=== PATIENT | female | born 1980 | race Caucasian/White ===

== ENCOUNTER 2016-11-16 18:54 | Emergency (ER) | payer OTHER ==
[2016-11-16 19:00] VITALS: BP 165/107
[2016-11-16] MEDS ORDERED: DIAZEPAM 5 MG TABLET PO ONE (19:04)
--- NOTE | 2016-11-16 19:04 | ER Document Report ---
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 pt ntoes this happens intermittently, noted that it happens now because her child is the same age as the flashbacks she has had i n the past. TRAVEL OUTSIDE OF THE [place] IN LAST 30 DAYS: No - Related Data Allergies/Adverse Reactions: No Known Allergies Allergy (Verified 11/16/16 18:59) Past Medical History - Social History Smoking Status: Never Smoker Cigarette use (# per day): No Chew tobacco use (# tins/day): No Smoking Education Provided: No Family History: Reviewed & Not Pertinent, Other - Hemophilia - Past Medical History Cardiac Medical History: Reports: Hx Hypertension - history of preecamplsia Endocrine Medical History: Reports: Hx Diabetes Mellitus Type 2, Hx Hypothyroidism Renal/ Medical History: Denies: Hx Peritoneal Dialysis Infectious Medical History: Reports: Hx MRSA - scalp Past Surgical History: Reports: Hx Cholecystectomy, Hx Thyroid Surgery - Thyroidectomy - Immunizations Immunizations up to date: Yes Hx Diphtheria, Pertussis, Tetanus Vaccination: Yes Physical Exam - Vital signs Vitals: Temp Pulse Resp BP Pulse Ox 98.5 F 101 H 18 165/107 H 97 11/16/16 18:59 11/16/16 18:59 11/16/16 18:59 11/16/16 18:59 11/16/16 18:59 Course - Re-evaluation Re-evalutation: 11/16/16 20:33 Valium did not improve patient's symptoms, Haldol resolve them. I will discharge the patient to follow-up with her own primary care physician After performing a Medical Screening Examination, I estimate there is LOW risk for INTRACRANIAL HEMORRHAGE, ISCHEMIC CVA, MALIGNANT DYSRHYTHMIA, ACUTE CORONARY SYNDROME, MENINGITIS, PULMONARY EMBOLISM, or SEPSIS thus I consider the discharge disposition reasonable. I have reevaluated this patient multiple times and no significant life threatening changes are noted. The patient and I have discussed the diagnosis and risks, and we agree with discharging home with close follow-up with the understanding that symptoms and presentations can change. We also discussed returning to the Emergency Department immediately if new or worsening symptoms occur. We have discussed the symptoms which are most concerning (e.g., changing or worsening pain, weakness, vomiting, fever) that necessitate immediate return. - Vital Signs Vital signs: Temp Pulse Resp BP Pulse Ox 98.5 F 101 H 18 165/107 H 97 11/16/16 18:59 11/16/16 18:59 11/16/16 18:59 11/16/16 18:59 11/16/16 18:59 Discharge - Discharge Clinical Impression: Panic attack as reaction to stress Condition: Stable Disposition: HOME, SELF-CARE Instructions: Anxiety ([facility]) Additional Instructions: Follow up with your physician tomorrow for further care or return to the ED IMMEDIATELY if symptoms worsen or new concerns occur. If you cannot afford to follow up with your primary care physician a list of low cost clinics have been provided at the end of your discharge papers as well.
[2016-11-16] MEDS ORDERED: HALOPERIDOL LACTATE INJ 5 MG/1 ML VIAL IM ONE (19:54)
== END 2016-11-16 20:37 | disposition home or self-care (01) ==
LOC: ER 18:54
DX: F43.0 Acute stress reaction (principal); I10 Essential (primary) hypertension; Z86.14 Personal history of Methicillin resistant Staphylococcus aureus infection; Z90.49 Acquired absence of other specified parts of digestive tract
CPT/HCPCS: 99282; 96372; J1630

== ENCOUNTER 2017-02-25 16:54 | Emergency (ER) | payer SELFPAY ==
[2017-02-25] MEDS ORDERED: DEXAMETHASONE SOD PHOS INJ 10 MG/1 ML VIAL IM ONE (19:32)
--- NOTE | 2017-02-25 19:39 | ER Document Report ---
ED General - General Chief Complaint: Rash Stated Complaint: RASH Time Seen by Provider: 02/25/17 19:19 Mode of Arrival: Ambulatory Information source: Patient TRAVEL OUTSIDE OF THE [place] IN LAST 30 DAYS: No - HPI Notes: 36-year-old female presents today with a rash to her right lower extremity that started approximately 2 weeks ago, states has been incredibly itchy and has been itching, which now has spread to her left lower extremity. Denies any fevers or chills. Patient has a history of histamine responses to any well- liked plant substances. Has tried [id number] Benadryl with some relief. Denies any open wounds or drainage. Denies any chest pain, shortness of breath , nausea, vomiting, blurred vision, double vision, loss of vision, abdominal pain, lightheadedness or dizziness. Denies any pain. Itching is 8 out of 10, constant. Has been outside near agitation. - Related Data Allergies/Adverse Reactions: No Known Allergies Allergy (Verified 02/25/17 16:55) Past Medical History - General Information source: Patient - Social History Smoking Status: Never Smoker Chew tobacco use (# tins/day): No Frequency of alcohol use: None Drug Abuse: None Family History: Reviewed & Not Pertinent, Other - Hemophilia Patient has suicidal ideation: No Patient has homicidal ideation: No - Past Medical History Cardiac Medical History: Reports: Hx Hypertension - history of preecamplsia Endocrine Medical History: Reports: Hx Diabetes Mellitus Type 2, Hx Hypothyroidism Renal/ Medical History: Denies: Hx Peritoneal Dialysis Psychiatric Medical History: Reports: Hx Depression Infectious Medical History: Reports: Hx MRSA - scalp Past Surgical History: Reports: Hx Cholecystectomy, Hx Thyroid Surgery - Thyroidectomy - Immunizations Immunizations up to date: Yes Hx Diphtheria, Pertussis, Tetanus Vaccination: Yes Review of Systems - Review of Systems Constitutional: No symptoms reported EENT: No symptoms reported Cardiovascular: No symptoms reported Respiratory: No symptoms reported Gastrointestinal: No symptoms reported Musculoskeletal: No symptoms reported Skin: See HPI Hematologic/Lymphatic: No symptoms reported Neurological/Psychological: No symptoms reported -: Yes All other systems reviewed and negative Physical Exam - Vital signs Vitals: Temp Pulse Resp BP Pulse Ox 98.7 F 100 18 133/86 H 98 02/25/17 17:06 02/25/17 17:06 02/25/17 17:06 02/25/17 17:06 02/25/17 17:06 Interpretation: Tachycardic - Notes Notes: PHYSICAL EXAMINATION: GENERAL: Well-appearing, well-nourished and in no acute distress. HEAD: Atraumatic, normocephalic. EYES: Pupils equal round and reactive to light, extraocular movements intact, conjunctiva are normal. ENT: Nares patent, oropharynx clear without exudates. Moist mucous membranes. NECK: Normal range of motion, supple without lymphadenopathy LUNGS: Breath sounds clear to auscultation bilaterally and equal. No wheezes rales or rhonchi. HEART: Regular rate and rhythm without murmurs ABDOMEN: Soft, nontender, nondistended abdomen. No guarding, no rebound. No masses appreciated. Female : deferred Musculoskeletal: Normal range of motion, no pitting or edema. No cyanosis. NEUROLOGICAL: Cranial nerves grossly intact. Normal speech, normal gait. Normal sensory, motor exams PSYCH: Normal mood, normal affect. SKIN: Warm, Dry, normal turgor, no rashes or lesions noted. Right lower extremity lateral aspect approximately 10 cm x 2 cm and left lower extremity on lateral aspects with papular macular rash, slight erythema. no induration, swelling, satellite lesions or burrowing on trunk. no weeping ot drainage. no central clearing on rash . No blisters noted, no vesicles noted. Course - Re-evaluation Re-evalutation: 02/25/17 19:43 Rechecked the patient who is resting comfortably. On re-exam, patient is symptomatically improved. Discussed the results of the the diagnosis at great length. Discussed the need to return to the ER for any new or worsening sx. Patient understands to take the Rx as directed. All questions answered. Patient comfortable with the decision to go home. - Vital Signs Vital signs: Temp Pulse Resp BP Pulse Ox 98.7 F 100 18 133/86 H 98 02/25/17 17:06 02/25/17 17:06 02/25/17 17:06 02/25/17 17:06 02/25/17 17:06 Discharge - Discharge Clinical Impression: Contact dermatitis Qualifiers: Contact dermatitis type: allergic Contact dermatitis trigger: other trigger Qualified Code(s): L23.89 - Allergic contact dermatitis due to other agents; L23.8 - Allergic contact dermatitis due to other agents Condition: Good Disposition: HOME, SELF-CARE Instructions: Contact Dermatitis ([facility]) Additional Instructions: Take oral prednisone as directed. Apply steroid ointment to affected area twice a day. Take [id number]-lophylw antihistamine such as Claritin. Monitor area. Avoid itching. Wash clothing, bed sheets, clean under her nails and clip nails. advised to return to the ER if any signs or symptoms became worse. Take [id number]-[id number] Motrin and Tylenol as needed for any fevers or pain. Follow up with primary care within 1-2 days. All questions and concerns answered by this provider.
[2017-02-25 20:05] VITALS: BP 140/95
== END 2017-02-25 20:05 | disposition home or self-care (01) ==
LOC: ER 16:54
DX: R21 Rash and other nonspecific skin eruption (principal); L23.89 Allergic contact dermatitis due to other agents
CPT/HCPCS: 99282; 96372; J1100

== ENCOUNTER 2017-07-18 22:06 | Emergency (ER) | payer OTHER ==
[2017-07-18] MEDS ORDERED: NIFEDIPINE 10 MG CAPSULE PO ONE (23:05)
[2017-07-18] MEDS ORDERED: LABETALOL HCL 200 MG TABLET PO ONE (23:05)
[2017-07-18] MEDS ORDERED: KETOROLAC TROMETHAMINE 60 MG/2 ML SDV IM ONE (23:05)
[2017-07-18] MEDS ORDERED: ONDANSETRON 4 MG TAB.RAPDIS PO ONE (23:07)
--- NOTE | 2017-07-18 23:07 | ER Document Report ---
ED General - General Chief Complaint: Headache Stated Complaint: HEAD ACHE Time Seen by Provider: 07/18/17 22:52 Mode of Arrival: Ambulatory Information source: Patient Notes: 36-year-old female patient presents with complaint of elevated blood pressure and headache. Patient reports that she typically takes labetalol 200 mg twice daily as well as nifedipine 90 mg daily. Patient reports that she has been only taking her medications every other day and she has not been able to afford a refill. Patient reports that over the last few weeks she has been having headaches similar to this when her blood pressure is elevated. Patient reports that this headache started earlier today and has progressively gotten worse and has associated nausea. Patient denies any fever. TRAVEL OUTSIDE OF THE [place] IN LAST 30 DAYS: No - Related Data Allergies/Adverse Reactions: No Known Allergies Allergy (Verified 07/18/17 23:13) Past Medical History - General Information source: Patient - Social History Smoking Status: Never Smoker Cigarette use (# per day): No Chew tobacco use (# tins/day): No Smoking Education Provided: No Frequency of alcohol use: None Drug Abuse: None Lives with: Family Family History: Reviewed & Not Pertinent, Other - Hemophilia - Past Medical History Cardiac Medical History: Reports: Hx Hypertension - history of preecamplsia Endocrine Medical History: Reports: Hx Diabetes Mellitus Type 2, Hx Hypothyroidism Renal/ Medical History: Denies: Hx Peritoneal Dialysis Psychiatric Medical History: Reports: Hx Depression Infectious Medical History: Reports: Hx MRSA - scalp Past Surgical History: Reports: Hx Cholecystectomy, Hx Thyroid Surgery - Thyroidectomy - Immunizations Immunizations up to date: Yes Hx Diphtheria, Pertussis, Tetanus Vaccination: Yes Review of Systems - Review of Systems Constitutional: No symptoms reported EENT: No symptoms reported Cardiovascular: No symptoms reported Respiratory: No symptoms reported Gastrointestinal: No symptoms reported Genitourinary: No symptoms reported Female Genitourinary: No symptoms reported Musculoskeletal: No symptoms reported Skin: No symptoms reported Hematologic/Lymphatic: No symptoms reported Neurological/Psychological: See HPI Physical Exam - Vital signs Vitals: Temp Pulse Resp BP Pulse Ox 98.5 F 98 16 145/100 H 96 07/18/17 22:19 07/18/17 22:19 07/18/17 22:19 07/18/17 22:19 07/18/17 22:19 - Notes Notes: PHYSICAL EXAMINATION: GENERAL: Well-appearing, well-nourished and in no acute distress. HEAD: Atraumatic, normocephalic. EYES: Pupils equal round and reactive to light, extraocular movements intact, conjunctiva are normal. ENT: Nares patent, oropharynx clear without exudates. Moist mucous membranes. NECK: Normal range of motion, supple without lymphadenopathy LUNGS: Breath sounds clear to auscultation bilaterally and equal. No wheezes rales or rhonchi. HEART: Regular rate and rhythm without murmurs ABDOMEN: Soft, nontender, nondistended abdomen. No guarding, no rebound. No masses appreciated. Female : deferred Musculoskeletal: Normal range of motion, no pitting or edema. No cyanosis. NEUROLOGICAL: Cranial nerves grossly intact. Normal speech, normal gait. Normal sensory, motor exams PSYCH: Normal mood, normal affect. SKIN: Warm, Dry, normal turgor, no rashes or lesions noted. Course - Re-evaluation Re-evalutation: 36-year-old female presenting with elevated blood pressure and headache. Patient's has had similar headaches over the last 2 weeks as she has been skipping blood pressure medicines to make them last longer due to finances Patient reports that today's headache was gradual in onset and has associated nausea. Low suspicion of SAH due to gradual onset and history of similar headaches. Will give patient dose of her normal home medications and Toradol/Zofran for her headache and nausea. Patient's blood pressure has normalized after administration of her home medications. Patient reports complete resolution of her fever after IM Toradol. Patient will be discharged home. - Vital Signs Vital signs: Temp Pulse Resp BP Pulse Ox 98.8 F 100 20 131/82 H 98 07/19/17 00:54 07/19/17 00:54 07/19/17 00:54 07/19/17 00:54 07/19/17 00:54 Discharge - Discharge Clinical Impression: Headache Qualifiers: Headache type: unspecified Headache chronicity pattern: unspecified pattern Intractability: not intractable Qualified Code(s): R51 - Headache Hypertension Qualifiers: Hypertension type: unspecified Qualified Code(s): I10 - Essential (primary) hypertension Condition: Stable Disposition: HOME, SELF-CARE Additional Instructions: High Blood Pressure When your blood pressure was taken today it was elevated. Pre-hypertension/Hypertension: The patient has been informed that they may have pre-hypertension or Hypertension based on a blood pressure reading in the emergency department. I recommend that the patient call the primary care provider listed on their discharge instructions or a physician of their choice this wee to arrange follow up for further evaluation of possible pre- hypertension or Hypertension. Sometimes, stress or illness causes a temporary elevation of your blood pressure. We suggest that you get your blood pressure measured three more times during the next few days to see if this is more than a temporary abnormality. If your blood pressure is greater than 150/90 on each occasion, you must have treatment. Some simple things you can do to help are: If you have blood pressure medicine but aren't using it regularly, start taking it again. Get some aerobic exercise for at least 20 minutes on a daily basis. (See your doctor before beginning a new exercise program.) Eat a low-fat diet. Lose excess weight. Avoid salty foods and avoid adding salt to any of the foods you eat. Avoid diet pills, decongestants, "energizing" herbs, and other medicines that elevate blood pressure. If left untreated, hypertension greatly enhances your risk for developing heart disease and strokes. Please don't ignore this problem. Please take your blood pressure medications as prescribed. Please return to the emergency department if you develop any further symptoms that are concerning to you such as sudden onset headache. Referrals: ANGUS TILLEY MD [Primary Care Provider] - Follow up as needed
[2017-07-19 01:01] VITALS: BP 131/82
== END 2017-07-19 01:10 | disposition home or self-care (01) ==
LOC: ER 22:06
DX: I10 Essential (primary) hypertension (principal); T46.1X6A Underdosing of calcium-channel blockers, initial encounter; T44.8X6A Underdosing of centrally-acting and adrenergic-neuron-blocking agents, initial encounter; Z91.120 Patient's intentional underdosing of medication regimen due to financial hardship; Z91.14 Patient's other noncompliance with medication regimen; R51 Headache; R11.0 Nausea; E11.9 Type 2 diabetes mellitus without complications
CPT/HCPCS: 99284; 96372; J1885; S0119; J3490

== ENCOUNTER 2017-07-30 10:28 | Emergency (ER) | payer OTHER ==
[2017-07-30] MEDS ORDERED: KETOROLAC TROMETHAMINE INJ/PF 30 MG/1 ML SDV IV ONE ×2 (10:48→13:52)
[2017-07-30] MEDS ORDERED: NORMAL SALINE 1000 ML 1,000 ML IV ONE (10:48)
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
[2017-07-30 11:22] LABS: ABSOLUTE BASOPHILS # (AUTO) 0.1 10^3/uL (0.0-0.2); ABSOLUTE LYMPHOCYTES (AUTO) 1.3 10^3/uL (0.5-4.7); ABSOLUTE MONOCYTES (AUTO) 0.6 10^3/uL (0.1-1.4); ABSOLUTE NEUT (AUTO) 14.7 10^3/uL (1.7-8.2); BASOPHILS % (AUTO) 0.5 % (0-2); EOSINOPHILS % (AUTO) 0.1 % (0-6); HEMATOCRIT 38.6 % (36.0-47.0); HEMOGLOBIN 13.3 g/dL (12.0-15.5); LYMPHOCYTES % (AUTO) 7.7 % (13-45); MEAN CORPUSCULAR HEMOGLOBIN 30.4 pg (27.0-33.4); MEAN CORPUSCULAR HGB CONC 34.5 g/dL (32.0-36.0); MEAN CORPUSCULAR VOLUME 88 fl (80-97); MONOCYTES % (AUTO) 3.3 % (3-13); PLATELET COUNT 239 10^3/uL (150-450); RED BLOOD COUNT 4.37 10^6/uL (3.72-5.28); RED CELL DISTRIBUTION WIDTH 13.3 % (11.5-14.0); SEGMENTED NEUTROPHILS % (AUTO) 88.4 % (42-78); TOTAL CELLS COUNTED % (AUTO) 100 %; WHITE BLOOD COUNT 16.7 10^3/uL (4.0-10.5)
[2017-07-30 11:27] LABS: APPEARANCE,URINE CLOUDY; BILIRUBIN,URINE NEGATIVE (NEGATIVE); COLOR,URINE YELLOW; GLUCOSE, URINE NEGATIVE (NEGATIVE); KETONES,URINE NEGATIVE (NEGATIVE); LEUKOCYTE ESTERASE,URINE LARGE (NEGATIVE); NITRITE,URINE NEGATIVE (NEGATIVE); PROTEIN,URINE 30 mg/dL (NEGATIVE); URINE SPECIFIC GRAVITY 1.017; UROBILINOGEN,URINE NEGATIVE mg/dL (<2.0)
[2017-07-30 11:39] LABS: ALANINE AMINOTRANSFERASE 20 U/L (9-52); ALBUMIN 4.5 g/dL (3.5-5.0); ALKALINE PHOSPHATASE 64 U/L (38-126); ANION GAP 15 (5-19); ASPARTATE AMINO TRANSFERASE 17 U/L (14-36); BILIRUBIN,DIRECT 0.3 mg/dL (0.0-0.4); BILIRUBIN,TOTAL 1.1 mg/dL (0.2-1.3); BLOOD UREA NITROGEN 12 mg/dL (7-20); CALCIUM 9.3 mg/dL (8.4-10.2); CARBON DIOXIDE 22 mmol/L (22-30); CHLORIDE 104 mmol/L (98-107); GLUCOSE 121 mg/dL (75-110); LIPASE 28.6 U/L (23-300); POTASSIUM 4.4 mmol/L (3.6-5.0); SODIUM 140.8 mmol/L (137-145); TOTAL PROTEIN 7.8 g/dL (6.3-8.2)
[2017-07-30] MEDS ORDERED: CEFTRIAXONE 1 GM/D5W RTU 1 GM/50 ML RTUPB IV ONE (13:46)
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
[2017-07-30] MEDS ORDERED: MORPHINE SULFATE 10 MG/ML INJ IV ONE (13:52)
--- NOTE | 2017-07-30 14:52 | RADIOLOGY REPORT (SQ) ---
EXAM DESCRIPTION: CT ABD/PELVIS WITH IV ONLY COMPLETED DATE/TIME: 07/30/2017 2:41 pm REASON FOR STUDY: pain COMPARISON: None. TECHNIQUE: CT scan of the abdomen and pelvis performed using helical scanning technique with dynamic intravenous contrast injection. No oral contrast. Images reviewed with lung, soft tissue, and bone windows. Reconstructed coronal and sagittal MPR images reviewed. Delayed images for evaluation of the urinary system also acquired. All images stored on PACS. All CT scanners at this facility use dose modulation, iterative reconstruction, and/or weight based d osing when appropriate to reduce radiation dose to as low as reasonably achievable (ALARA). [facility]: Dose Right [facility]: CareDose [facility]: Dose Right [facility]: Teradose 4D [facility]: [employer] CONTRAST TYPE AND DOSE: contrast/concentration: Isovue 370.00 mg/ml; Total Contrast Delivered: 100.0 ml; Total Saline Delivered: 72.0 ml RENAL FUNCTION: BUN 12 creatinine 0.75. RADIATION DOSE: CT Rad equipment meets quality standard of care and radiation dose reduction techniq ues were employed. CTDIvol: 20.1 - 21.1 mGy. DLP: 2190 mGy-cm.. LIMITATIONS: None. FINDINGS: LOWER CHEST: No significant findings. No nodules or infiltrates. LIVER: Normal size. No masses. No dilated ducts. SPLEEN: Normal size. No focal lesions. PANCREAS: No masses. No significant calcifications. No adjacent inflammation or peripancreatic fluid collections. Pancreatic duct not dilated. GALLBLADDER: Surgically absent. ADRENAL GLANDS: No significant masses or asymmetry. RIGHT KIDNEY AND URETER: No solid masses. No significant calcifications. No hydronephrosis or hyd roureter. LEFT KIDNEY AND URETER: No solid masses. No significant calcifications. No hydronephrosis or hydr oureter. AORTA AND VESSELS: No aneurysm. No dissection. Renal arteries, SMA, celiac without stenosis. RETROPERITONEUM: No retroperitoneal adenopathy, hemorrhage or masses. BOWEL AND PERITONEAL CAVITY: No masses or inflammatory changes. No free fluid or peritoneal masses. APPENDIX: Normal. PELVIS: IUD in the uterus. No mass. No free fluid. Normal bladder. ABDOMINAL WALL: No masses. No hernias. BONES: No significant or acute findings. OTHER: No other significant finding. IMPRESSION: NO SIGNIFICANT OR ACUTE FINDING IN THE ABDOMEN OR PELVIS ON CT SCAN WITH IV CONTRAST. TECHNICAL DOCUMENTATION: JOB ID: [id number] Quality ID # [id number]: Final reports with documentation of one or more dose reduction techniques (e.g., Au tomated exposure control, adjustment of the mA and/or kV according to patient size, use of iterative reconstruction technique) 2010 [employer]- All Rights Reserved Reading location - IP/workstation name: [email or web address]
[2017-07-30 17:36] VITALS: BP 110/64
[2017-07-30 19:02] LABS: CHLAM PCR NOT DETECTED (NOT DETECT); GON PCR DETECTED (NOT DETECT)
== END 2017-07-30 17:36 | disposition home or self-care (01) ==
LOC: ER 10:28
DX: N39.0 Urinary tract infection, site not specified (principal); R10.13 Epigastric pain; R50.9 Fever, unspecified; E11.9 Type 2 diabetes mellitus without complications; R11.0 Nausea; Z90.49 Acquired absence of other specified parts of digestive tract
CPT/HCPCS: 96376; 99284; 96361; 96375; 96365; 36415; 87040; 83690; 84703; 85025; 80053; 81001; 87491; 87591; 74177; J1885; J2270; J7030; J0696

== ENCOUNTER 2018-03-15 14:32 | Emergency (ER) | payer OTHER ==
[2018-03-15 14:52] VITALS: BP 162/109
[2018-03-15] MEDS ORDERED: DIPHENHYDRAMINE HCL 50 MG/ML VIAL IM ONE (16:28)
[2018-03-15] MEDS ORDERED: HALOPERIDOL LACTATE INJ 5 MG/1 ML VIAL IM ONE (16:28)
--- NOTE | 2018-03-15 16:30 | ER Document Report ---
ED Medical Screen (RME) - General Chief Complaint: Psych Problem Stated Complaint: PSYCH EVAL Time Seen by Provider: 03/15/18 16:21 Primary Care Provider: ANGUS TILLEY MD [Primary Care Provider] - Follow up as needed Mode of Arrival: Ambulatory Information source: Patient Notes: This is a 37-year-old female with a history of hypertension, PTSD, panic attacks who presents to the emergency room with anxiety and recurrent flashbacks (which is what she experiences when she gets panic attacks. She did try and follow-up with her therapist (Dr. Rahman) but the office was called yesterday. She states that she will be able to get in tomorrow. She states she has had shots in the past that have helped her when she gets these recurrent flashbacks. Review of the chart shows in October 2016, she was evaluated for an anxiety episode similar to day and was treated. The note from the MD at that time notes that Haldol helped the patient. I discussed it with the patient will going to try that medicine today. TRAVEL OUTSIDE OF THE [place] IN LAST 30 DAYS: No - HPI Onset: Last week Onset/Duration: Gradual Quality of pain: No pain Severity: None Pain Level: Denies Associated Symptoms: denies: Chest pain, Chills, Shortness of breath Exacerbated by: Denies Relieved by: Denies Similar symptoms previously: Yes Recently seen / treated by doctor: Yes - Related Data Smoking: Non-smoker Frequency of alcohol use: None Drug Abuse: None Allergies/Adverse Reactions: No Known Allergies Allergy (Verified 03/15/18 14:33) Past Medical History - General Information source: Patient - Social History Cigarette use (# per day): No Chew tobacco use (# tins/day): No Frequency of alcohol use: None Drug Abuse: None Lives with: Family Family history: None - Past Medical History Cardiac Medical History: Reports: Hx Hypertension - history of preecamplsia Endocrine Medical History: Reports: Hx Diabetes Mellitus Type 2, Hx Hypothyroidism Renal/ Medical History: Denies: Hx Peritoneal Dialysis Psychiatric Medical History: Reports: Hx Depression Infectious Medical History: Reports: Hx MRSA - scalp Past Surgical History: Reports: Hx Cholecystectomy, Hx Thyroid Surgery - T hyroidectomy - Immunizations Immunizations up to date: Yes Hx Diphtheria, Pertussis, Tetanus Vaccination: Yes Review of Systems - Review of Systems Constitutional: denies: Chills, Fever EENT: No symptoms reported Cardiovascular: No symptoms reported Respiratory: No symptoms reported Gastrointestinal: No symptoms reported Genitourinary: No symptoms reported Female Genitourinary: No symptoms reported Musculoskeletal: No symptoms reported Skin: No symptoms reported Hematologic/Lymphatic: No symptoms reported Neurological/Psychological: Anxiety, Other - Flashbacks Physical Exam - Vital signs Vitals: Temp Pulse Resp BP Pulse Ox 98.5 F 90 14 162/109 H 99 03/15/18 14:51 03/15/18 14:51 03/15/18 14:51 03/15/18 14:51 03/15/18 14:51 Notes: Physical exam: GENERAL: She is alert and oriented x3, no acute distress however she does appear anxious HEAD: Atraumatic, normocephalic. EYES: Pupils equal round and reactive to light, extraocular movements intact, sclera anicteric, conjunctiva are normal. ENT: TMs normal, nares patent, oropharynx clear without exudates. Moist mucous membranes. NECK: Normal range of motion, supple without obvious mass or JVD. LUNGS: Breath sounds clear to auscultation bilaterally and equal. No wheezes rales or rhonchi. HEART: Regular rate and rhythm without murmurs, rubs or gallops. ABDOMEN: Soft, normoactive bowel sounds. No tenderness to palpation. No guarding, no rebound. No masses appreciated. EXTREMITIES: Normal range of motion, no pitting or edema. No clubbing or cyanosis. NEUROLOGICAL: Cranial nerves II through XII grossly intact. Normal speech, moving all extremities. PSYCH: Patient is anxious, ports having recurrent flashbacks, denies any suicidal homicidal. She denies any hallucinations. SKIN: Warm, Dry, normal turgor, no rashes or lesions noted. Course - Re-evaluation Re-evalutation: 03/15/18 19:36 Patient left prior to discharge instructions - Vital Signs Vital signs: Temp Pulse Resp BP Pulse Ox 98.5 F 90 14 162/109 H 99 03/15/18 14:51 03/15/18 14:51 03/15/18 14:51 03/15/18 14:51 03/15/18 14:51 Doctor's Discharge - Discharge Clinical Impression: Anxiety Condition: Stable Disposition: HOME, SELF-CARE Additional Instructions: I want you to continue your current medicines, follow-up with your counselor tomorrow as planned. Return to the emergency room for any thoughts of wanting to hurt yourself or others. Referrals: ANGUS TILLEY MD [Primary Care Provider] - Follow up as needed
== END 2018-03-15 17:44 | disposition home or self-care (01) ==
LOC: ER 14:32
DX: F41.9 Anxiety disorder, unspecified (principal); F43.10 Post-traumatic stress disorder, unspecified; I10 Essential (primary) hypertension; Z86.14 Personal history of Methicillin resistant Staphylococcus aureus infection; Z90.49 Acquired absence of other specified parts of digestive tract
CPT/HCPCS: 99283; 96372; J1200; J1630

== ENCOUNTER → 2018-07-29 | Outpatient (CLI) | payer OTHER ==
--- NOTE | 2018-07-29 11:17 | RADIOLOGY REPORT (SQ) ---
EXAM DESCRIPTION: HIP RIGHT AP/LATERAL COMPLETED DATE/TIME: 07/29/2018 10:28 am REASON FOR STUDY: PAIN IN RIGHT HIP M25.551 PAIN IN RIGHT HIP E89.0 POSTPROCEDURAL HYPOTHYROIDISM COMPARISON: None. NUMBER OF VIEWS: Two views. TECHNIQUE: AP pelvis and additional frog-leg view of the right hip. LIMITATIONS: None. FINDINGS: MINERALIZATION: Normal. RIGHT HIP: No fracture or dislocation. No worrisome bone lesions. LEFT HIP: No fracture or dislocation. No worrisome bone lesions. PUBIS AND ISCHIUM: No fracture. PELVIS: No fracture. SACRUM: No fracture or dislocation. No worrisome bone lesions. LOWER LUMBAR SPINE: No fracture or dislocation. No worrisome bone lesions. No significant disc disea se. SOFT TISSUES: No findings. OTHER: IUD in the pelvic region. No other significant finding. IMPRESSION: NEGATIVE STUDY OF THE RIGHT HIP. NO RADIOGRAPHIC EVIDENCE OF ACUTE INJURY. TECHNICAL DOCUMENTATION: JOB ID: [id number] [employer]- All Rights Reserved Reading location - IP/workstation name: [email or web address]
== END ==
LOC: OD 10:15
PROVIDERS: ATTEND Physician Assistant
DX: M25.551 Pain in right hip (principal); E89.0 Postprocedural hypothyroidism

== ENCOUNTER 2018-09-16 13:13 | Emergency (ER) | payer OTHER ==
--- NOTE | 2018-09-16 14:42 | ER Document Report ---
ED Medical Screen (RME) - General Chief Complaint: Blood Pressure Problem Stated Complaint: BLOOD PRESSURE ISSUES Time Seen by Provider: 09/16/18 14:10 Primary Care Provider: ANGELES WARREN PA-C [Primary Care Provider] - Follow up as needed Notes: Patient is a 38-year-old female presents to the emergency department for generalized dizziness and hypertension. Patient states she is been taking her blood pressure over the last couple days and noticed is been 176/115 multiple times. States she is a generalized headache and generalized dizziness which is why she presents to the emergency room. Patient states she did try to get into her primary care provider but has been unable. States she takes labetalol and nifedipine and has been on the same medications for the last 4 years. GENERAL: Alert, interacts well. No acute distress. LUNGS: Clear to auscultation bilaterally, no wheezes, rales, or rhonchi. No respiratory distress. NEUROLOGICAL: Alert and oriented x3. Normal speech. I have greeted and performed a rapid initial assessment of this patient. A comprehensive ED assessment and evaluation of the patient, analysis of test results and completion of the medical decision making process will be conducted by additional ED providers. I have specifically instructed the patient or family members with the patient to immediately return to any nursing staff should anything change in the patient's condition or with their chief complaint. This medical record was dictated with voice recognizing software. There may be grammatical, syntax errors that are unintended. TRAVEL OUTSIDE OF THE [place] IN LAST 30 DAYS: No - Related Data Allergies/Adverse Reactions: No Known Allergies Allergy (Verified 09/16/18 13:22) Past Medical History - Social History Chew tobacco use (# tins/day): No Frequency of alcohol use: None Drug Abuse: None Family history: None - Past Medical History Cardiac Medical History: Reports: Hx Hypertension Endocrine Medical History: Reports: Hx Diabetes Mellitus Type 2 - INDUCED, Hx Hypothyroidism Renal/ Medical History: Denies: Hx Peritoneal Dialysis Psychiatric Medical History: Reports: Hx Depression Infectious Medical History: Reports: Hx MRSA - scalp Past Surgical History: Reports: Hx Cholecystectomy, Hx Thyroid Surgery - Thyroidectomy - Immunizations Immunizations up to date: Yes Hx Diphtheria, Pertussis, Tetanus Vaccination: Yes Physical Exam - Vital signs Vitals: Temp Pulse Resp BP Pulse Ox 98.7 F 89 20 149/93 H 97 09/16/18 13:37 09/16/18 13:37 09/16/18 13:37 09/16/18 13:37 09/16/18 13:37 Course - Vital Signs Vital signs: Temp Pulse Resp BP Pulse Ox 98.7 F 89 20 149/93 H 97 09/16/18 13:37 09/16/18 13:37 09/16/18 13:37 09/16/18 13:37 09/16/18 13:37 Doctor's Discharge - Discharge Referrals: ANGELES WARREN PA-C [Primary Care Provider] - Follow up as needed
[2018-09-16 15:11] LABS: ABSOLUTE BASOPHILS # (AUTO) 0.1 10^3/uL (0.0-0.2); ABSOLUTE LYMPHOCYTES (AUTO) 2.5 10^3/uL (0.5-4.7); ABSOLUTE MONOCYTES (AUTO) 0.7 10^3/uL (0.1-1.4); ABSOLUTE NEUT (AUTO) 5.1 10^3/uL (1.7-8.2); APPEARANCE,URINE SLIGHTLY-CLOUDY; BASOPHILS % (AUTO) 0.6 % (0-2); BILIRUBIN,URINE NEGATIVE (NEGATIVE); COLOR,URINE YELLOW; EOSINOPHILS % (AUTO) 0.3 % (0-6); GLUCOSE, URINE NEGATIVE (NEGATIVE); HEMATOCRIT 43.7 % (36.0-47.0); HEMOGLOBIN 14.8 g/dL (12.0-15.5); KETONES,URINE NEGATIVE (NEGATIVE); LEUKOCYTE ESTERASE,URINE MODERATE (NEGATIVE); LYMPHOCYTES % (AUTO) 29.2 % (13-45); MEAN CORPUSCULAR HGB CONC 33.9 g/dL (32.0-36.0); MEAN CORPUSCULAR VOLUME 89 fl (80-97); MONOCYTES % (AUTO) 8.4 % (3-13); NITRITE,URINE NEGATIVE (NEGATIVE); PLATELET COUNT 232 10^3/uL (150-450); PROTEIN,URINE NEGATIVE (NEGATIVE); RED BLOOD COUNT 4.93 10^6/uL (3.72-5.28); RED CELL DISTRIBUTION WIDTH 13.1 % (11.5-14.0); SEGMENTED NEUTROPHILS % (AUTO) 61.5 % (42-78); TOTAL CELLS COUNTED % (AUTO) 100 %; URINE SPECIFIC GRAVITY 1.014; UROBILINOGEN,URINE NEGATIVE mg/dL (<2.0); WHITE BLOOD COUNT 8.4 10^3/uL (4.0-10.5)
[2018-09-16 15:24] LABS: ALANINE AMINOTRANSFERASE 18 U/L (9-52); ALBUMIN 4.9 g/dL (3.5-5.0); ALKALINE PHOSPHATASE 63 U/L (38-126); ANION GAP 11 (5-19); ASPARTATE AMINO TRANSFERASE 19 U/L (14-36); BILIRUBIN,DIRECT 0.3 mg/dL (0.0-0.4); BILIRUBIN,TOTAL 0.7 mg/dL (0.2-1.3); BLOOD UREA NITROGEN 13 mg/dL (7-20); CALCIUM 9.6 mg/dL (8.4-10.2); CARBON DIOXIDE 26 mmol/L (22-30); CHLORIDE 103 mmol/L (98-107); GLUCOSE 114 mg/dL (75-110)
--- NOTE | 2018-09-16 15:34 | RADIOLOGY REPORT (SQ) ---
EXAM DESCRIPTION: CT HEAD WITHOUT COMPLETED DATE/TIME: 09/16/2018 3:25 pm REASON FOR STUDY: dizziness, HTN COMPARISON: None. TECHNIQUE: Axial images acquired through the brain without intravenous contrast. Images reviewed wi th bone, brain and subdural windows. Additional sagittal and coronal reconstructions were generated. Images stored on PACS. All CT scanners at this facility use dose modulation, iterative reconstruction, and/or weight based d osing when appropriate to reduce radiation dose to as low as reasonably achievable (ALARA). [facility]: Dose Right [facility]: CareDose [facility]: Dose Right [facility]: Teradose 4D [facility]: [employer] RADIATION DOSE: CT Rad equipment meets quality standard of care and radiation dose reduction techniq ues were employed. CTDIvol: 53.2 mGy. DLP: 1097 mGy-cm. mGy. LIMITATIONS: None. FINDINGS: VENTRICLES: Normal size and contour. CEREBRUM: No masses. No hemorrhage. No midline shift. No evidence for acute infarction. Normal gra y/white matter differentiation. No areas of low density in the white matter. CEREBELLUM: No masses. No hemorrhage. No alteration of density. No evidence for acute infarction. EXTRAAXIAL SPACES: No fluid collections. No masses. ORBITS AND GLOBE: No intra- or extraconal masses. Normal contour of globe without masses. CALVARIUM: No fracture. PARANASAL SINUSES: No fluid or mucosal thickening. SOFT TISSUES: No mass or hematoma. OTHER: No other significant finding. IMPRESSION: No acute intracranial pathology. EVIDENCE OF ACUTE STROKE: NO. COMMENT: Quality ID # [id number]: Final reports with documentation of one or more dose reduction techniques (e.g., Automated exposure control, adjustment of the mA and/or kV according to patient size, use of iterative reconstruction technique) TECHNICAL DOCUMENTATION: JOB ID: [id number] [employer]- All Rights Reserved Reading location - IP/workstation name: [email or web address]
[2018-09-16] MEDS ORDERED: ONDANSETRON 4 MG TAB.RAPDIS PO ONE (18:35)
[2018-09-16] MEDS ORDERED: MECLIZINE HCL 25 MG TABLET PO ONE (18:35)
[2018-09-16 19:35] LABS: FREE T3 4.21 pg/mL (2.77-5.27); FREE T4 (FREE THYROXINE) 1.36 ng/dL (0.78-2.19)
[2018-09-16 19:49] LABS: THYROID STIMULATING HORMONE 2.74 uIU/mL (0.47-4.68)
--- NOTE | 2018-09-16 20:00 | ER Document Report ---
ED General - General Chief Complaint: Blood Pressure Problem Stated Complaint: BLOOD PRESSURE ISSUES Time Seen by Provider: 09/16/18 14:10 Primary Care Provider: ANGELES WARREN PA-C [Primary Care Provider] - Follow up as needed ANGUS TILLEY MD [NO LOCAL MD] - Follow up in 3-5 days Mode of Arrival: Ambulatory Information source: Patient Notes: 38-year-old female with type 2 diabetes, hypertension, hypothyroidism presents with complaint of confusion, "fogginess". Patient states that she has had intermittent fluctuations in her blood pressure for approximately 1 week. She states when she begins to feel foggy she checks her blood pressure which has ranged anywhere from 176 systolic to 132 systolic. Patient denies any changes in her blood pressure medication which are nifedipine 90 mg daily and labetalol 200 mg twice daily. Patient does have a history of thyroidectomy and is on levothyroxine. She does report an increase of her levothyroxine a proximally 1 month ago. Patient denies any headache, visual changes, nausea, vomiting, weakness, difficulty with ambulation, ear pain, chest pain. TRAVEL OUTSIDE OF THE [place] IN LAST 30 DAYS: No - HPI Onset: Other Onset/Duration: Intermittent Quality of pain: No pain Severity: None Pain Level: Denies Associated symptoms: denies: Chest pain, Earache, Fever, Nausea, Vomiting, Shortness of breath Exacerbated by: Denies Relieved by: Denies - Related Data Allergies/Adverse Reactions: No Known Allergies Allergy (Verified 09/16/18 13:22) Past Medical History - General Information source: Patient, Relative, [facility] Records - Social History Smoking Status: Never Smoker Chew tobacco use (# tins/day): No Frequency of alcohol use: None Drug Abuse: None Lives with: Spouse/Significant other Family History: Reviewed & Not Pertinent, Other - Hemophilia Patient has suicidal ideation: No Patient has homicidal ideation: No - Past Medical History Cardiac Medical History: Reports: Hx Hypertension Endocrine Medical History: Reports: Hx Diabetes Mellitus Type 2 - INDUCED, Hx Hypothyroidism Renal/ Medical History: Denies: Hx Peritoneal Dialysis Psychiatric Medical History: Reports: Hx Depression Infectious Medical History: Reports: Hx MRSA - scalp Past Surgical History: Reports: Hx Cholecystectomy, Hx Thyroid Surgery - Thyroidectomy - Immunizations Immunizations up to date: Yes Hx Diphtheria, Pertussis, Tetanus Vaccination: Yes Review of Systems - Review of Systems Constitutional: denies: Chills, Fever, Weakness, Weight loss, Recent illness EENT: denies: Blurred vision, Double vision, Difficulty swallowing Cardiovascular: Dizziness. denies: Chest pain, Palpitations, Edema Respiratory: denies: Cough, Short of breath Gastrointestinal: denies: Abdominal pain, Nausea, Vomiting Genitourinary: denies: Dysuria, Frequency, Urgency Female Genitourinary: No symptoms reported Musculoskeletal: denies: Back pain, Muscle pain, Muscle stiffness, Neck pain Skin: denies: Rash Hematologic/Lymphatic: No symptoms reported Neurological/Psychological: Confusion. denies: Sensory change, Weakness, Se izure, Headaches, Speech impairment, Numbness, Tingling -: Yes All other systems reviewed and negative Physical Exam - Vital signs Vitals: Temp Pulse Resp BP Pulse Ox 98.7 F 89 20 149/93 H 97 09/16/18 13:37 09/16/18 13:37 09/16/18 13:37 09/16/18 13:37 09/16/18 13:37 - Notes Notes: PHYSICAL EXAMINATION: GENERAL: Well-appearing, well-nourished and in no acute distress. HEAD: Atraumatic, normocephalic. EYES: Pupils equal round and reactive to light, extraocular movements intact, conjunctiva are normal. ENT: Nares patent, oropharynx clear without exudates. Moist mucous membranes. NECK: Normal range of motion, supple without lymphadenopathy LUNGS: Breath sounds clear to auscultation bilaterally and equal. No wheezes rales or rhonchi. HEART: Regular rate and rhythm without murmurs ABDOMEN: Soft, nontender, nondistended abdomen. No guarding, no rebound. No masses appreciated. Female : deferred Musculoskeletal: Normal range of motion, no pitting or edema. No cyanosis. NEUROLOGICAL: Mental status; alert and oriented x3. Cranial nerves II through XII intact. Sensation intact to sharp/dull differentiation in all extremities. Motor; normal tone. No abnormal movements appreciated. No pronator drift. Strength tested and 5/5 in bilateral wrist flexion/extension, elbow flexion/extension, shoulder abduction, straight leg raise, knee flexion/extension, ankle dorsiflexion/plantar flexion. Patient ambulates with a steady gait. Coordination; no ataxia. Finger to nose and heel to allen testing intact bilaterally. Reflexes; brachial radialis, biceps, and patellar reflexes within normal limits and symmetric bilaterally. Babinski with downgoing toes bilaterally. PSYCH: Normal mood, normal affect. SKIN: Warm, Dry, normal turgor, no rashes or lesions noted. Course - Re-evaluation Re-evalutation: 09/16/18 21:15 Laboratory 09/16/18 09/16/18 09/16/18 14:45 14:45 14:45 WBC 8.4 RBC 4.93 Hgb 14.8 Hct 43.7 MCV 89 MCH 30.0 MCHC 33.9 RDW 13.1 Plt Count 232 Seg Neutrophils % 61.5 Lymphocytes % 29.2 Monocytes % 8.4 Eosinophils % 0.3 Basophils % 0.6 Absolute Neutrophils 5.1 Absolute Lymphocytes 2.5 Absolute Monocytes 0.7 Absolute Eosinophils 0.0 Absolute Basophils 0.1 Sodium 139.5 Potassium 4.0 Chloride 103 Carbon Dioxide 26 Anion Gap 11 BUN 13 Creatinine 0.82 Est GFR ( Amer) > 60 Est GFR (Non-Af Amer) > 60 Glucose 114 H Calcium 9.6 Total Bilirubin 0.7 Direct Bilirubin 0.3 Neonat Total Bilirubin Not Reportable Neonat Direct Bilirubin Not Reportable Neonat Indirect Bili Not Reportable AST 19 ALT 18 Alkaline Phosphatase 63 Troponin I < 0.012 Total Protein 8.0 Albumin 4.9 TSH Free T4 Free T3 pg/mL Beta HCG, Quant < 2.39 Total Beta HCG NEGATIVE Urine Color Urine Appearance Urine pH Ur Specific Hilliard Urine Protein Urine Glucose (UA) Urine Ketones Urine Blood Urine Nitrite Urine Bilirubin Urine Urobilinogen Ur Leukocyte Esterase Urine WBC (Auto) Urine RBC (Auto) Squamous Epi Cells Auto Urine Mucus (Auto) Urine Ascorbic Acid 09/16/18 09/16/18 14:45 14:45 WBC RBC Hgb Hct MCV MCH MCHC RDW Plt Count Seg Neutrophils % Lymphocytes % Monocytes % Eosinophils % Basophils % Absolute Neutrophils Absolute Lymphocytes Absolute Monocytes Absolute Eosinophils Absolute Basophils Sodium Potassium Chloride Carbon Dioxide Anion Gap BUN Creatinine Est GFR ( Amer) Est GFR (Non-Af Amer) Glucose Calcium Total Bilirubin Direct Bilirubin Neonat Total Bilirubin Neonat Direct Bilirubin Neonat Indirect Bili AST ALT Alkaline Phosphatase Troponin I Total Protein Albumin TSH 2.74 Free T4 1.36 Free T3 pg/mL 4.21 Beta HCG, Quant Total Beta HCG Urine Color YELLOW Urine Appearance SLIGHTLY-CLOUDY Urine pH 5.0 Ur Specific Hilliard 1.014 Urine Protein NEGATIVE Urine Glucose (UA) NEGATIVE Urine Ketones NEGATIVE Urine Blood NEGATIVE Urine Nitrite NEGATIVE Urine Bilirubin NEGATIVE Urine Urobilinogen NEGATIVE Ur Leukocyte Esterase MODERATE H Urine WBC (Auto) 5 Urine RBC (Auto) 3 Squamous Epi Cells Auto 7 Urine Mucus (Auto) OCC Urine Ascorbic Acid NEGATIVE Head CT 09/16/18 14:40 IMPRESSION: No acute intracranial pathology. EVIDENCE OF ACUTE STROKE: NO. Temp Pulse Resp BP Pulse Ox 99.2 F 88 18 140/82 H 100 09/16/18 20:32 09/16/18 20:32 09/16/18 20:32 09/16/18 20:32 09/16/18 20:32 38-year-old female presents with concern for fluctuating blood pressure and dizziness that has been intermittent for 1 week. Vital signs reviewed and patient is mildly hypertensive with a blood pressure of 140/82. NIH 0. Patient ambulates without difficulty. CBC, CMP, cardiac enzymes and thyroid levels are within normal limits. CT of the head showed no acute intracranial pathology. There is no evidence of end-organ damage. Patient does not require aggressive blood pressure control at this time. Patient did receive meclizine and does report some improvement of her dizziness. Recommend that the patient follow-up with her primary care physician. 09/16/18 21:17 Patient was evaluated and treated as appropriate for the patient's presenting symptoms and complaint, with consideration of any critical or life threatening conditions that may be associated with their obtained history and exam as noted above. All results were discussed with patient and friend who is at the bedside. Patient provided the opportunity to ask questions, and express concerns. Patient was educated on treatments based on their presumed diagnosis as noted above. At this time we will discharge the patient with return precautions and follow-up recommendations. Verbal discharge instructions given a the bedside. Medication warnings reviewed. Patient is in agreement with this plan and has verbalized understanding of return precautions. After careful consideration I feel that that patient can be safely discharged from the emergency department, they were advised to followup with a primary care physician in 2-3 days. Dictation on this chart was performed using voice recognition software and may result in unintended grammatical, spelling, syntax or errors. - Vital Signs Vital signs: Temp Pulse Resp BP Pulse Ox 99.2 F 88 18 140/82 H 100 09/16/18 20:32 09/16/18 20:32 09/16/18 20:32 09/16/18 20:32 09/16/18 20:32 - Laboratory Result Diagrams: 09/16/18 14:45 09/16/18 14:45 Laboratory results interpreted by me: 09/16/18 09/16/18 14:45 14:45 Glucose 114 H Ur Leukocyte Esterase MODERATE H - Diagnostic Test Radiology reviewed: Image reviewed, Reports reviewed - EKG Interpretation by Me EKG shows normal: Sinus rhythm Rate: Normal Rhythm: NSR When compared to previous EKG there are: No significant change Discharge - Discharge Clinical Impression: Dizziness Hypothyroidism Qualifiers: Hypothyroidism type: unspecified Qualified Code(s): E03.9 - Hypothyroidism, unspecified Hypertension Qualifiers: Hypertension type: unspecified Qualified Code(s): I10 - Essential (primary) hypertension Condition: Good Disposition: HOME, SELF-CARE Instructions: Dizziness ([facility]) Additional Instructions: Follow up with your [id number] hours for further care or return to the ED IMMEDIATELY if symptoms worsen or you have any concerns. If you cannot afford to follow up with your primary care physician a list of low cost clinics have been provided at the end of your discharge papers as well. Most prescribed medications have multiple side effects. The safest thing to do is when filling your prescription speak to your pharmacist regarding possible interactions with your normal home medications and over the counter medications such as Ibuprofen, Tylenol, Benadryl. If you experience any symptoms that cause you discomfort or concern you should discontinue the medication immediately and return to the emergency room or call your primary care physician. Prescriptions: Meclizine HCl [Antivert 25 mg Tablet] 25 mg PO TID PRN #21 tablet PRN Reason: Forms: Elevated Blood Pressure Referrals: ANGELES WARREN PA-C [Primary Care Provider] - Follow up as needed ANGUS TILLEY MD [NO LOCAL MD] - Follow up in 3-5 days
--- NOTE | 2018-09-16 20:31 | EKG REPORT ---
SEVERITY:- BORDERLINE ECG - SINUS RHYTHM PROBABLE LEFT ATRIAL ABNORMALITY : Confirmed by: Shira Almendarez 16-Sep-2018 20:31:19
[2018-09-16 20:37] VITALS: BP 140/82
== END 2018-09-16 20:37 | disposition home or self-care (01) ==
LOC: ER 13:13
DX: I10 Essential (primary) hypertension (principal); E03.9 Hypothyroidism, unspecified; R42 Dizziness and giddiness; Z90.49 Acquired absence of other specified parts of digestive tract
CPT/HCPCS: 93005; 99284; 36415; 87086; 84439; 84702; 84443; 85025; 80053; 81001; 84484; 84481; 70450; 93010; S0119

== ENCOUNTER 2019-10-27 10:50 | Emergency (ER) | payer MEDICAID, OTHER ==
--- NOTE | 2019-10-27 11:42 | ER Document Report ---
ED Medical Screen (RME) - General Chief Complaint: Leg Pain Stated Complaint: LEFT LEG PAIN Time Seen by Provider: 10/27/19 11:40 Primary Care Provider: ESTRELLA SANON PA-C [Primary Care Provider] - Follow up as needed Mode of Arrival: Ambulatory Information source: Patient Notes: 39-year-old female Sincere to ED for complaint of pain to the posterior knee and calf. She states is been for about 2 days. She is alert oriented respirations regular nonlabored speaking in full sentences. She does not smoke she drinks yearly does not use any drugs. She has a history of PTSD thyroidectomy cholecystectomy and elevated blood pressure. I have greeted and performed a rapid initial assessment of this patient. A comprehensive ED assessment and evaluation of the patient, analysis of test results and completion of medical decision making process will be conducted by an additional ED providers. TRAVEL OUTSIDE OF THE [place] IN LAST 30 DAYS: No - Related Data Allergies/Adverse Reactions: No Known Allergies Allergy (Verified 09/16/18 13:22) Past Medical History - Social History Family history: None - Past Medical History Cardiac Medical History: Reports: Hx Hypertension Endocrine Medical History: Reports: Hx Diabetes Mellitus Type 2 - INDUCED, Hx Hypothyroidism Renal/ Medical History: Denies: Hx Peritoneal Dialysis Psychiatric Medical History: Reports: Hx Depression Infectious Medical History: Reports: Hx MRSA - scalp Past Surgical History: Reports: Hx Cholecystectomy, Hx Thyroid Surgery - Thyroidectomy - Immunizations Immunizations up to date: Yes Hx Diphtheria, Pertussis, Tetanus Vaccination: Yes Physical Exam - Vital signs Vitals: Temp Pulse Resp BP Pulse Ox 98.0 F 90 16 124/85 100 10/27/19 11:04 10/27/19 11:04 10/27/19 11:04 10/27/19 11:04 10/27/19 11:04 Course - Vital Signs Vital signs: Temp Pulse Resp BP Pulse Ox 98.0 F 90 16 124/85 100 10/27/19 11:04 10/27/19 11:04 10/27/19 11:04 10/27/19 11:04 10/27/19 11:04 Doctor's Discharge - Discharge Referrals: ESTRELLA SANON PA-C [Primary Care Provider] - Follow up as needed
[2019-10-27 12:07] LABS: ABSOLUTE LYMPHOCYTES (AUTO) 2.1 10^3/uL (0.5-4.7); ABSOLUTE MONOCYTES (AUTO) 0.5 10^3/uL (0.1-1.4); ABSOLUTE NEUT (AUTO) 5.1 10^3/uL (1.7-8.2); BASOPHILS % (AUTO) 0.5 % (0-2); EOSINOPHILS % (AUTO) 0.1 % (0-6); HEMATOCRIT 41.7 % (36.0-47.0); HEMOGLOBIN 14.2 g/dL (12.0-15.5); LYMPHOCYTES % (AUTO) 26.9 % (13-45); MEAN CORPUSCULAR HEMOGLOBIN 29.5 pg (27.0-33.4); MEAN CORPUSCULAR HGB CONC 34.1 g/dL (32.0-36.0); MEAN CORPUSCULAR VOLUME 87 fl (80-97); MONOCYTES % (AUTO) 6.9 % (3-13); PLATELET COUNT 236 10^3/uL (150-450); RED BLOOD COUNT 4.83 10^6/uL (3.72-5.28); RED CELL DISTRIBUTION WIDTH 13.4 % (11.5-14.0); SEGMENTED NEUTROPHILS % (AUTO) 65.6 % (42-78); TOTAL CELLS COUNTED % (AUTO) 100 %; WHITE BLOOD COUNT 7.8 10^3/uL (4.0-10.5)
--- NOTE | 2019-10-27 12:12 | ER Document Report ---
ED General - General Chief Complaint: Leg Pain Stated Complaint: LEFT LEG PAIN Time Seen by Provider: 10/27/19 11:40 Primary Care Provider: ESTRELLA SANON PA-C [Primary Care Provider] - Follow up as needed Mode of Arrival: Ambulatory Notes: Patient presents with left leg varicose veins, she has chronic varicosities but says that some new ones have popped up in the last few days and she is now having popliteal pain. No injury no mass in the popliteal area no distal edema beyond her normal and no skin discoloration other than the varicose veins. She is on a control/IUD that does not have hormones and it has no recent flights surgeries or immobilization and has no history of thrombosis. TRAVEL OUTSIDE OF THE [place] IN LAST 30 DAYS: No - Related Data Allergies/Adverse Reactions: No Known Allergies Allergy (Verified 09/16/18 13:22) Home Medications: labatolol. nephedipine. effoxor XR. Xanax. synthroid. abilify Past Medical History - General Information source: Patient - Social History Smoking Status: Never Smoker Chew tobacco use (# tins/day): No Frequency of alcohol use: None Drug Abuse: None Family History: Reviewed & Not Pertinent, Other - Hemophilia - Past Medical History Cardiac Medical History: Reports: Hx Hypertension Endocrine Medical History: Reports: Hx Diabetes Mellitus Type 2 - INDUCED, Hx Hypothyroidism Renal/ Medical History: Denies: Hx Peritoneal Dialysis Psychiatric Medical History: Reports: Hx Depression Infectious Medical History: Reports: Hx MRSA - scalp Past Surgical History: Reports: Hx Cholecystectomy, Hx Thyroid Surgery - Thyroidectomy - Immunizations Immunizations up to date: Yes Hx Diphtheria, Pertussis, Tetanus Vaccination: Yes Review of Systems - Review of Systems Notes: REVIEW OF SYSTEMS GEN: Denies fever, chills, weight loss ENT: Denies sore throat, nasal discharge, ear pain EYES: Denies blurry vision, eye pain, discharge CV: Denies chest pain, palpitations, edema RESP: Denies cough, shortness of breath, wheezing GI: Denies abdominal pain, nausea, vomiting, diarrhea MSK: Leg pain, varicose veins SKIN: Denies rash, skin lesions LYMPH: Denies swollen glands/lymph nodes NEURO: Denies headache, focal weakness or numbness, dizziness PSYCH: Denies depression, suicidal or homicidal ideation PHYSICAL EXAMINATION General: No acute distress, well-nourished Head: Atraumatic, normocephalic ENT: Mouth normal, oropharynx moist, no exudates or tonsillar enlargement Eyes: Conjunctiva normal, pupils equal, lids normal Neck: No JVD, supple, no guarding CVS: Normal rate, regular rhythm, no murmurs Resp: No resp distress, equal and normal breath sounds bilaterally GI: Nondistended, soft, no tenderness to palpation, no rebound or guarding Ext: Prominent varicose veins left calf mostly medial, mild popliteal tenderness with no masses Back: No CVA or midline TTP Skin: No rash, warm Lymphatic: No lymphadeopathy noted Neuro: Awake, alert. Face symmetric. GCS 15. Physical Exam - Vital signs Vitals: Temp Pulse Resp BP Pulse Ox 98.0 F 90 16 124/85 100 10/27/19 11:04 10/27/19 11:04 10/27/19 11:04 10/27/19 11:04 10/27/19 11:04 Course - Re-evaluation Re-evalutation: 10/27/19 12:12 Varicose veins for superficial thrombosis versus DVT versus Cisneros's cyst No labs needed Ultrasound 10/27/19 14:33 Ultrasound negative. Circulation stockings elevation follow-up primary care. I have discussed with the patient there likely diagnosis, aftercare plan, follow- up plans and my usual and customary return precautions. They verbalized understanding of this. - Vital Signs Vital signs: Temp Pulse Resp BP Pulse Ox 98.0 F 90 16 124/85 100 10/27/19 11:04 10/27/19 11:04 10/27/19 11:04 10/27/19 11:04 10/27/19 11:04 - Laboratory Result Diagrams: 10/27/19 11:53 10/27/19 11:53 - Diagnostic Test Radiology reviewed: Image reviewed, Reports reviewed Procedures - Ultrasound/Bedside Ultrasound/Bedside Ultrasound: Other - Ultrasound DVT left lower extremity. Prominent varicosities present. Visualized portion of popliteal vein are compressible but the patient's habitus and machine quality prevents full exam. Discharge - Discharge Clinical Impression: Varicose veins of lower extremity Qualifiers: Varicose vein complication: unspecified Laterality: left Qualified Code(s): I83.92 - Asymptomatic varicose veins of left lower extremity Condition: Good Disposition: HOME, SELF-CARE Instructions: Varicose Veins ([facility]) Referrals: ESTRELLA SANON PA-C [Primary Care Provider] - Follow up as needed
[2019-10-27 12:14] LABS: INTERNATIONAL RATION (INR) 0.95
[2019-10-27 12:18] LABS: PROTHROMBIN TIME 12.9 SEC (11.4-15.4)
[2019-10-27 12:28] LABS: ALBUMIN 4.7 g/dL (3.5-5.0); ALKALINE PHOSPHATASE 67 U/L (38-126); ANION GAP 9 (5-19); ASPARTATE AMINO TRANSFERASE 23 U/L (14-36); BILIRUBIN,DIRECT 0.2 mg/dL (0.0-0.4); BILIRUBIN,TOTAL 0.8 mg/dL (0.2-1.3); BLOOD UREA NITROGEN 13 mg/dL (7-20); CALCIUM 9.4 mg/dL (8.4-10.2); CARBON DIOXIDE 25 mmol/L (22-30); CHLORIDE 103 mmol/L (98-107); GLUCOSE 109 mg/dL (75-110); POTASSIUM 4.8 mmol/L (3.6-5.0); TOTAL PROTEIN 7.8 g/dL (6.3-8.2)
[2019-10-27 14:42] VITALS: BP 120/81
--- NOTE | 2019-10-27 16:54 | RADIOLOGY REPORT (SQ) ---
EXAM DESCRIPTION: VENOUS UNILATERAL LOWER IMAGES COMPLETED DATE/TIME: 10/27/2019 4:45 pm REASON FOR STUDY: Pain in the back of the left knee and calf for 2 d COMPARISON: None. TECHNIQUE: Dynamic and static valentine scale and color images acquired of the left leg venous system. Se lected spectral images acquired with additional compression and augmentation maneuvers. The contralat eral common femoral vein and saphenofemoral junction were also imaged. Images stored on PACS. LIMITATIONS: None. FINDINGS: COMMON FEMORAL: Normal phasicity, compression and augmentation. No visualized echogenic ma terial on valentine scale. No defects on color images. FEMORAL: Normal compression and augmentation. No visualized echogenic material on valentine scale. No defe cts on color images. POPLITEAL: Normal compression, augmentation. No visualized echogenic material on valentine scale. No defec ts on color images. CALF VESSELS: Normal compression, augmentation. No visualized echogenic material on valentine scale. No de fects on color images. GSV and SSV: Normal compression, augmentation. No visualized echogenic material on valentine scale. No def ects on color images. ANY DEEP VENOUS INSUFFICIENCY: Not evaluated. ANY EVIDENCE OF POPLITEAL CYST: No. OTHER: No other significant finding. CONTRALATERAL COMMON FEMORAL VEIN AND SAPHENOFEMORAL JUNCTION: Normal phasicity, compression and augmentation. No visualized echogenic material on valentine scale. No de fects on color images. IMPRESSION: NO EVIDENCE OF DVT OR SVT IN THE LEFT LEG. TECHNICAL DOCUMENTATION: JOB ID: [id number] [employer]- All Rights Reserved Reading location - IP/workstation name: [email or web address]
== END 2019-10-27 14:42 | disposition home or self-care (01) ==
LOC: ER 10:50
DX: I83.92 Asymptomatic varicose veins of left lower extremity (principal); M79.605 Pain in left leg; Z79.899 Other long term (current) drug therapy; I10 Essential (primary) hypertension; E11.9 Type 2 diabetes mellitus without complications
CPT/HCPCS: 36415; 80053; 85025; 85610; 93971; 99284